=== PATIENT | male | born 1985 | race African-American/Black ===

== ENCOUNTER 2018-10-18 14:38 | Emergency (ER) | payer SELFPAY | END 2018-10-18 16:10 | disposition home or self-care (01) | LOC: ERS 14:38 | DX: R42 Dizziness and giddiness (principal); F17.210 Nicotine dependence, cigarettes, uncomplicated | CPT/HCPCS: 99283 ==

== ENCOUNTER 2018-10-29 00:23 | Emergency (ER) | payer SELFPAY ==
[2018-10-29] MEDS ORDERED: Ibuprofen 800 MG TAB ONE (01:26)
== END 2018-10-29 01:45 | disposition home or self-care (01) ==
LOC: ERS 00:23
DX: R51 Headache (principal); Z71.6 Tobacco abuse counseling; F17.210 Nicotine dependence, cigarettes, uncomplicated; F98.8 Other specified behavioral and emotional disorders with onset usually occurring in childhood and adolescence

== ENCOUNTER 2018-11-05 10:45 | Emergency (ER) | payer SELFPAY | END 2018-11-05 11:18 | disposition home or self-care (01) | LOC: ERS 10:45 | DX: Z11.4 Encounter for screening for human immunodeficiency virus [HIV] (principal); F98.8 Other specified behavioral and emotional disorders with onset usually occurring in childhood and adolescence; F17.210 Nicotine dependence, cigarettes, uncomplicated | CPT/HCPCS: 99281 ==